=== PATIENT | female | born 1990 | race Caucasian/White ===

== ENCOUNTER → 2022-06-19 10:38 | Outpatient (BNVA) | payer SELFPAY | PROVIDERS: Visit Provider Nurse Practitioner Family | DX: R50.9 Fever, unspecified (principal); J02.0 Streptococcal pharyngitis | CPT/HCPCS: 87071; 87400; 87880 ==

== ENCOUNTER → 2022-09-24 16:43 | Outpatient (BNVA) | payer BC, SELFPAY | PROVIDERS: Visit Provider Nurse Practitioner Family | DX: R05.9 Cough, unspecified (principal) | CPT/HCPCS: 87426 ==

== ENCOUNTER → 2022-11-21 18:09 | Outpatient (BNVA) | payer BC, SELFPAY | DX: R39.9 Unspecified symptoms and signs involving the genitourinary system (principal); N10 Acute pyelonephritis | CPT/HCPCS: 81000 ==

== ENCOUNTER 2023-02-22 17:09 | Emergency (ER) | payer BC, SELFPAY ==
[2023-02-22 17:25] VITALS: BP 94/63; PULSE 102; RESP 16; TEMP 36.7; O2SAT 100; BMI 20.7
--- NOTE | 2023-02-22 17:53 | CTR_ITS ---
PROCEDURE INFORMATION: Exam: CT Cervical Spine Without Contrast Exam date and time: 02/22/2023 7:22 PM Age: 32 years old Clinical indication: Injury or trauma; Other: Fall from horse; Blunt trauma; Additional info: Trauma fall TECHNIQUE: Imaging protocol: Computed tomography of the cervical spine without contrast. Radiation optimization: All CT scans at this facility use at least one of these dose optimization techniques: automated exposure control; mA and/or kV adjustment per patient size (includes targeted exams where dose is matched to clinical indication); or iterative reconstruction. REPORTING DATA: Count of CT and Cardiac NM exams in prior 12 months: This patient has received 0 known CTs and 0 known cardiac nuclear medicine studies in the 12 months prior to the current study. COMPARISON: No relevant prior studies available. RADIATION DOSE METRICS: Total DLP (mGy-cm): 160 FINDINGS: Bones/joints: Mild reversal of the cervical lordosis, which may indicate muscle spasm. Vertebral body heights are preserved. No compression fractures are noted. No cervical vertebral subluxation at any level. Intervertebral disc heights are preserved. No significant intervertebral disc narrowing. No spinal canal or neural foraminal stenosis. Lungs: The lung apices are clear. Pleural spaces: No apical pneumothorax demonstrated. Soft tissues: The soft tissues are unremarkable. CT/CT cervical spin wo con* [id number] IMPRESSION: 1. Mild reversal of the cervical lordosis, which may indicate muscle spasm. 2. No acute osseous abnormality of the cervical spine.
--- NOTE | 2023-02-22 17:53 | CTR_ITS ---
PROCEDURE INFORMATION: Exam: CT Head Without Contrast Exam date and time: 02/22/2023 7:22 PM Age: 32 years old Clinical indication: Injury or trauma; Other: Fall from horse; Concussion/head injury; Without loss of consciousness; Additional info: Trauma fall TECHNIQUE: Imaging protocol: Computed tomography of the head without contrast. Radiation optimization: All CT scans at this facility use at least one of these dose optimization techniques: automated exposure control; mA and/or kV adjustment per patient size (includes targeted exams where dose is matched to clinical indication); or iterative reconstruction. REPORTING DATA: Count of CT and Cardiac NM exams in prior 12 months: This patient has received 0 known CTs and 0 known cardiac nuclear medicine studies in the 12 months prior to the current study. COMPARISON: No relevant prior studies available. RADIATION DOSE METRICS: Total DLP (mGy-cm): 1004 FINDINGS: Brain: Unremarkable. No hemorrhage. No significant white matter disease. No edema. Cerebral ventricles: No ventriculomegaly. Paranasal sinuses: Visualized sinuses are unremarkable. No air fluid levels. Mastoid air cells: Unremarkable as visualized. No mastoid effusion. Bones/joints: Unremarkable. No acute fracture. Soft tissues: Unremarkable. CT/CT head wo con* [id number] IMPRESSION: No acute intracranial abnormality demonstrated.
--- NOTE | 2023-02-22 17:53 | CTR_ITS ---
PROCEDURE INFORMATION: Exam: CT Abdomen And Pelvis With Contrast Exam date and time: 02/22/2023 7:30 PM Age: 32 years old Clinical indication: Injury or trauma; Other: Fall from horse; Blunt; Abdominal wall; Additional info: Trauma fall TECHNIQUE: Imaging protocol: Computed tomography of the abdomen and pelvis with contrast. Radiation optimization: All CT scans at this facility use at least one of these dose optimization techniques: automated exposure control; mA and/or kV adjustment per patient size (includes targeted exams where dose is matched to clinical indication); or iterative reconstruction. Contrast material: OMNI 350; Contrast volume: 100 ml; Contrast route: INTRAVENOUS (IV); REPORTING DATA: Count of CT and Cardiac NM exams in prior 12 months: This patient has received 0 known CTs and 0 known cardiac nuclear medicine studies in the 12 months prior to the current study. COMPARISON: No relevant prior studies available. RADIATION DOSE METRICS: Total DLP (mGy-cm): 394.45 FINDINGS: Liver: Unremarkable. No mass. Gallbladder and bile ducts: No calcified stones. No ductal dilation. Pancreas: Unremarkable. No ductal dilation. Spleen: Unremarkable. No splenomegaly. Adrenal glands: Unremarkable. No mass. Kidneys and ureters: Unremarkable. No hydronephrosis. No solid mass. Stomach and bowel: Unremarkable. No obstruction. No mucosal thickening. Appendix: No evidence of appendicitis. Intraperitoneal space: No free air. No significant fluid collection. Vasculature: No abdominal aortic aneurysm. Lymph nodes: No pathologically enlarged lymph nodes. Urinary bladder: Unremarkable as visualized. Reproductive: Status post hysterectomy. Bones/joints: Unremarkable. No acute osseous abnormality. Soft tissues: Unremarkable. CT/CT abdomen pelvis w con* [id number] IMPRESSION: No acute abnormality demonstrated in the abdomen and pelvis.
--- NOTE | 2023-02-22 18:19 | ED_ITS ---
HPI - Fall General: Chief Complaint: Fall Stated Complaint: left leg pain Time Seen by Provider: 02/22/23 17:27 Source: patient Mode of arrival: ambulatory Limitations: no limitations History of Present Illness: 32-year-old female states that she was bucked from a horse this afternoon around 1 she states she did hit her head and her back states that today she has had a headache along with some lightheadedness especially with standing. She also has left-sided flank pain. She rates her pain currently an 8 out of 10 she had no vomiting no diarrhea she denies any chest pain. Associated symptoms-after fall: Reports headache(s) and neck pain; Denies abdominal pain or chest pain Review of Systems Const: Denies: fever(s), chills, body aches or change in appetite ENMT: Denies: throat pain or dental pain Card: Denies: chest pain Resp: Denies: dyspnea GI: Denies: abdominal pain, nausea, vomiting or diarrhea : Reports: flank pain; Denies: dysuria Musc: Reports: neck pain; Denies: back pain Skin/Breast: Denies: rash Neuro: Reports: headache(s) PFSH ED PFSH: Medical History Cellulitis Family History Grandmother Cancer brain tumor Grandfather Cancer Mother Cancer skin Social History Smoking and tobacco/nicotine status: never used tobacco/nicotine Second hand smoke exposure: No Alcohol intake: current Alcohol intake frequency: holidays/special occasions only Alcohol type: other Substance/Drug Use: never Household members: spouse and children Marital status: Current occupational status: unemployed Current gender identity: Female Special senthil needs: No Physical Exam Const: COMMON NORMALS: no acute distress, patient oriented x3 and healthy appearing HENMT: COMMON NORMALS: normocephalic and atraumatic HEAD & SCALP: normocephalic and atraumatic Eye: COMMON NORMALS: Equal, round and reactive pupils present and EOMs intact bilaterally PUPIL: Yes Equal, round and reactive pupils present Neck/C-Spine: COMMON NORMALS: supple Chest: COMMONS NORMALS: normal inspection of the chest and normal palpation of entire chest wall Resp: COMMON NORMALS: normal respiratory effort, No retractions, No use of accessory muscles and clear to auscultation bilaterally AUSCULTATION: clear to auscultation bilaterally Cardio: COMMON NORMALS: regular rate, regular rhythm and No murmurs present (Cardio) RATE: regular rate RHYTHM: regular rhythm GI: COMMON NORMALS: Normal to inspection, nondistended, normoactive bowel sounds present, Soft to palpation, non-tender and no masses PALPATION: Yes Soft to palpation : OTHER: Tenderness over left thoracic and low back along with flank tenderness Extremity: COMMON NORMALS: normal to inspection and full ROM Neuro: COMMON NORMALS: patient oriented x3, moves all extremities and no focal motor deficits Psych: COMMON NORMALS: mental status grossly normal, Normal thought process present and cooperative THOUGHT PROCESS: Normal thought process present Skin: COMMON NORMALS: no rashes or lesions noted and no wounds GENERAL SKIN EXAM: no rashes or lesions noted Course Vital Signs: Vital signs: Vital Signs Temperature 98.0 F 02/22/23 17:25 Pulse Rate 95 02/22/23 19:47 Respiratory Rate 16 02/22/23 19:47 Blood Pressure 114/79 02/22/23 19:47 Pulse Oximetry 97 02/22/23 19:47 Oxygen Delivery Me thod Room Air 02/22/23 17:25 MDM - Fall Medical Decision Making Patient presents here with back pain with closed head injury after being bucked from horse head CT neck CT and CT abdomen are all normal no signs of kidney injury no signs of spinal fracture she is stable for discharge we will prescribe her Naprosyn she is to return if worsening. Medical Records I reviewed the patient's medical records. Lab Data I reviewed the patient's lab results. 02/22/23 18:22 02/22/23 18:22 Radiology Impressions Abdomen/Pelvis CT 02/22/23 17:53 IMPRESSION: No acute abnormality demonstrated in the abdomen and pelvis. Cervical Spine CT 02/22/23 17:53 IMPRESSION: 1. Mild reversal of the cervical lordosis, which may indicate muscle spasm. 2. No acute osseous abnormality of the cervical spine. Head CT 02/22/23 17:53 IMPRESSION: No acute intracranial abnormality demonstrated. Laboratory Results WBC 10.16 10^3/uL (3.29-11.43) 02/22/23 18:22 RBC 3.77 10^6/uL (3.85-5.65) L 02/22/23 18: Hgb 12.10 g/dL (11.27-16.99) 02/22/23 18: Hct 36.7 % (36-47) 02/22/23 18: MCV 97.3 fl (85-98) 02/22/23 18: MCH 32.1 pg (27-33) 02/22/23 18: MCHC 33.0 g/dL (30-55) 02/22/23 18: RDW 13.1 % (12.1-15.1) 02/22/23 18: Plt Count 205 10^3/cmm (157-399) 02/22/23 18: MPV 9.7 fL (7.4-10.4) 02/22/23 18: Neut % (Auto) 84.9 % 02/22/23 18: Lymph % (Auto) 10.0 % 02/22/23 18: [place] % (Auto) 4.3 % 02/22/23 18: Eos % (Auto) 0.1 % 02/22/23 18: Baso % (Auto) 0.3 % 02/22/23: Neut # (Auto) 8.62 10^3/uL (1.8-7.7) H 02/22/23: Lymph # (Auto) 1.0 10^3/uL (0.8-4.8) 02/22/23 18: [place] # (Auto) 0.4 10^3/uL (0.2-0.9) 02/22/23 18: Eos # (Auto) 0.0 10^3/uL (0.0-0.8) 02/22/23 18: Baso # (Auto) 0.0 10^3/uL (0.0-0.1) 02/22/23 18: Nucleated RBC % (auto) 0 % 02/22/23 18: Nucleated RBCs # 0.0 /100WBC 02/22/23 18:22 Sodium 140 mmol/L (136-145) 02/22/23 18: Potassium 3.7 mmol/L (3.5-5.1) 02/22/23 18:22 Chloride 103 mmol/L (98-107) 02/22/23 18:22 Carbon Dioxide 26 mmol/L (22-29) 02/22/23 18:22 Anion Gap 14.7 (5-19) 02/22/23 18:22 BUN 11 mg/dL (6-20) 02/22/23 18:22 Creatinine 0.6 mg/dL (0.5-0.9) 02/22/23 18:22 GFR Calculation 115.1 mL/min (90-130) 02/22/23 18:22 Glucose 115 mg/dL (65-115) 02/22/23 18:22 Calculated Osmolality 290 mOsm/kg (285-295) 02/22/23 18:22 Calcium 9.2 mg/dL (8.5-10.5) 02/22/23 18:22 Total Bilirubin 0.3 mg/dL (0.15-1.2) 02/22/23 18:22 AST 26 U/L (0-32) 02/22/23 18:22 ALT 29 U/L (0-33) 02/22/23 18:22 Alkaline Phosphatase 58 U/L (35-105) 02/22/23 18:22 Total Protein 7.6 g/dL (6.6-8.7) 02/22/23 18:22 Albumin 4.7 g/dL (3.5-5.2) 02/22/23 18:22 Globulin 2.9 g/dL (1.3-4.6) 02/22/23 18:22 All radiology interpretation(s) finalized by discharge Discharge Plan Discharge Patient Disposition: Home Clinical Impression: Closed head injury, Contusion of lower back Condition: Stable Prescriptions: New Naprosyn 500 mg tablet 500 mg PO BID PRN (Reason: pain) Qty: 20 0RF No Action ciprofloxacin HCl [Cipro] 500 mg tablet 500 mg PO BID 10 Days Qty: 20 0RF phenazopyridine [Pyridium] 200 mg tablet 200 mg PO Q8H PRN (Reason: pain) Qty: 6 0RF Discharge Orders: Discharge ED (Routine); Ordered 02/22/23 Ordered By: Dao Collado Discharge Diet: Advance as tolerated Discharge Activity: Resume usual activity Patient Instructions: Head Injury (ED), Back Pain (ED) Coding Level of Care Code ED [employer] Operator for Esperanza Benz
[2023-02-22] MEDS: acetaminophen 325 mg Tablet 650 MG PO (18:40)
[2023-02-22] MEDS: ondansetron 2 mg/ML SDV 2 mL 4 MG IVP (18:40)
[2023-02-22] MEDS: sodium chloride 0.9% 1,000 ML 999 ML IV (18:40)
[2023-02-22 19:00] LABS: Basophils % 0.3 %; Eosinophils % 0.1 %; Hematocrit 36.7 % (36-47); Mean Corpuscular Hemoglobin 32.1 pg (27-33); Mean Corpuscular Volume 97.3 fl (85-98); Mean Platelet Volume 9.7 fL (7.4-10.4); Monocytes # 0.4 10^3/uL (0.2-0.9); Monocytes % 4.3 %; Neutrophils # 8.62 10^3/uL (1.8-7.7); Neutrophils % 84.9 %; Nucleated Red Blood Cells % 0 %; Platelet Count 205 10^3/cmm (157-399); Red Blood Count 3.77 10^6/uL (3.85-5.65); Red Cell Distribution Width 13.1 % (12.1-15.1); White Blood Count 10.16 10^3/uL (3.29-11.43)
[2023-02-22 19:28] LABS: Alanine Aminotransferase 29 U/L (0-33); Albumin Level 4.7 g/dL (3.5-5.2); Alkaline Phosphatase 58 U/L (35-105); Anion Gap 14.7 (5-19); Aspartate Amino Transferase 26 U/L (0-32); Blood Urea Nitrogen 11 mg/dL (6-20); Calcium 9.2 mg/dL (8.5-10.5); Carbon Dioxide 26 mmol/L (22-29); Chloride 103 mmol/L (98-107); Globulin 2.9 g/dL (1.3-4.6); Glomerular Filtration Rate 115.1 mL/min (90-130); Glucose 115 mg/dL (65-115); Osmolality Calculated 290 mOsm/kg (285-295); Potassium 3.7 mmol/L (3.5-5.1); Sodium 140 mmol/L (136-145); Total Bilirubin 0.3 mg/dL (0.15-1.2); Total Protein 7.6 g/dL (6.6-8.7)
[2023-02-22] MEDS: iohexol 350 mg/mL 500 mL Btl (per mL) IV (19:34)
[2023-02-22 19:47] VITALS: BP 114/79; PULSE 95; RESP 16; O2SAT 97
[2023-02-22 20:04] LABS: Add Urine Microscopic? NO; Charge for UA Resulting for Rev
[2023-02-22 20:18] VITALS: BP 114/79; PULSE 95; RESP 16; TEMP 36.7; O2SAT 97
[2023-02-22 20:24] LABS: Bilirubin Urine Neg (Negative); Blood Urine Neg (Negative); Glucose Urine UA Norm (Normal); Ketones Urine 1+ (Negative); Leukocyte Esterase Urine Negative (Negative); Nitrate Urine Negative (Negative); Protein Urine Neg (Negative); Urine Appearance Clear (CLEAR); Urine Color Yellow (Yellow); Urobilinogen Urine Neg (Negative); pH Urine 7 (5-7)
== END 2023-02-22 20:19 | disposition home or self-care (01) ==
PROVIDERS: Internal Medicine; Emergency Provider Emergency Medicine
DX: S09.8XXA Other specified injuries of head, initial encounter (principal); S30.0XXA Contusion of lower back and pelvis, initial encounter; V80.010A Animal-rider injured by fall from or being thrown from horse in noncollision accident, initial encounter
CPT/HCPCS: 36415; 70450; 72125; 74177; 80053; 81003; 85025; 96374; 99285; J2405; J7030; Q9967

== ENCOUNTER → 2023-06-04 08:55 | Outpatient (BNVA) | payer BC, SELFPAY | PROVIDERS: PCP Nurse Practitioner Family; Visit Provider Nurse Practitioner Family | DX: Z13.6 Encounter for screening for cardiovascular disorders (principal) | CPT/HCPCS: 80061 ==